=== PATIENT | female | born 1960 | race Caucasian/White ===

== ENCOUNTER → 2022-03-10 14:06 | Outpatient (BNVA) | payer BC, SELFPAY | PROVIDERS: Visit Provider Nurse Practitioner Family | DX: R09.81 Nasal congestion (principal); B34.9 Viral infection, unspecified; R12 Heartburn; I10 Essential (primary) hypertension | CPT/HCPCS: 87400; 87426 ==

== ENCOUNTER → 2022-06-14 11:50 | Outpatient (BNVA) | payer BC, SELFPAY | PROVIDERS: Visit Provider Nurse Practitioner Family | DX: M47.894 Other spondylosis, thoracic region (principal); M41.84 Other forms of scoliosis, thoracic region; M50.322 Other cervical disc degeneration at C5-C6 level | CPT/HCPCS: 72040; 72072 ==

== ENCOUNTER → 2023-08-30 10:45 | Outpatient (BNVA) | payer OTHER, SELFPAY | PROVIDERS: PCP Nurse Practitioner Family; Visit Provider Nurse Practitioner | DX: M19.011 Primary osteoarthritis, right shoulder; R29.898 Other symptoms and signs involving the musculoskeletal system | CPT/HCPCS: 73030 ==

== ENCOUNTER 2023-10-10 12:42 | Outpatient (CLI) | payer OTHER, SELFPAY ==
--- NOTE | 2023-10-10 13:00 | MR_ITS ---
WS: [id number] MRI RIGHT SHOULDER NONCONTRAST TECHNIQUE: Sagittal T2, coronal T1, T2 and proton density imaging. Axial gradient PDE imaging. CLINICAL INFORMATION: RIGHT shoulder pain and weakness COMPARISON: None. FINDINGS: Moderate degenerative arthritis AC joint with fluid and edema. Mild downsloping acromion. Impingement distal supraspinatus with subacromial spurring. Tendinopathy supraspinatus with partial intrasubstan ce tear. No tendon retraction. Chronic thinning of the distal supraspinatus. Tendinopathy infraspinat us. Normal teres minor. Normal subscapularis. Biceps tendon appears intact within the bicipital groove. M oderate to advanced degenerative arthritis glenohumeral articulation. Diffuse edema within the RIGHT humeral neck compatible with contusion. Suspected tiny hairline fractu re along the humeral neck although difficult to visualize due to motion artifact. This could be furth er evaluated with CT if indicated. MR/MR shoulder RT wo con* [id number] IMPRESSION: 1. Diffuse edema within the RIGHT humeral neck compatible with contusion. Susp ect tiny hairline fracture in this area but difficult to visualize due to motio n artifact. This can be followed up with CT if indicated. 2. Advanced degenerative arthritis AC joint with fluid and edema. 3. Tendinopathy supraspinatus and infraspinatus with chronic thinning. 4. Partial intrasubstance tear supraspinatus. No tendon retraction. 5. Biceps tendon appears intact within the bicipital groove.
== END 2023-10-10 12:43 | disposition home or self-care (01) ==
LOC: RAD 12:43
PROVIDERS: PCP Nurse Practitioner Family; Visit Provider Nurse Practitioner
DX: M19.011 Primary osteoarthritis, right shoulder (principal); R22.31 Localized swelling, mass and lump, right upper limb; M75.80 Other shoulder lesions, unspecified shoulder; M75.111 Incomplete rotator cuff tear or rupture of right shoulder, not specified as traumatic; M75.41 Impingement syndrome of right shoulder; M25.711 Osteophyte, right shoulder
CPT/HCPCS: 73221

== ENCOUNTER → 2023-10-19 15:03 | Outpatient (BNVA) | payer OTHER, SELFPAY | PROVIDERS: PCP Nurse Practitioner Family; Visit Provider Nurse Practitioner | DX: R29.898 Other symptoms and signs involving the musculoskeletal system (principal) | CPT/HCPCS: 36415; 80053; 81003; 81015; 85025 ==

== ENCOUNTER 2023-11-10 08:53 | Day surgery (SDC) | payer OTHER, SELFPAY ==
[2023-11-10] VITALS (10 sets, daily range): BP systolic 157–197; BP diastolic 80–96; PULSE 67–86; RESP 16–20; TEMP 36.2–37.2; O2SAT 97–100; BMI 28.6
[2023-11-10] MEDS: gabapentin 300 mg Capsule PO (09:40)
[2023-11-10] MEDS: acetaminophen 1,000 MG/100 ML PIGGYBACK 400 MG IV (09:40)
[2023-11-10] MEDS: CELEcoxib 200 mg Capsule 400 MG PO (09:40)
--- NOTE | 2023-11-10 09:45 | ANES.PREANE2 ---
Pre-Anesthetic Assessment Height/Weight: Height 1.63 m Weight 75.75 kg Temp Pulse Resp BP Pulse Ox O2 Del Method 98.9 F 67 18 197/80 99 Room Air 11/10/23 09:28 11/10/23 09:28 11/10/23 09:28 11/10/23 09:28 11/10/23 09:28 11/10/23 09:28 Operation Date: 11/10/23 10:40 Proposed Procedures p Open Distal Clavicle Resection(Right) - Mariaa Benedict MD s Acromioplasty(Right) - Mariaa Benedict MD s Debridement Upper Extremity/ shoulder(Right) - Mariaa Benedict MD Familial anesthetic complications: None Was Beta Chandana taken within 24 hours: N/A Was Clonidine taken within 24 hours: N/A Last intake: Intake Last Liquid Date 11/09/23 Last Liquid Time 20:30 Last Solid Date 11/09/23 Last Solid Time 20:30 Social No alcohol and No tobacco Exam alert, oriented x 3, clear to auscultation bilaterally and regular rate & rhythm Airway Mallampati: Class II Dentition: full CV/HEM Hypertension Anesthetic Plan ASA status: 2 Anesthesia: Regional (specify below) Risk of > 500 ml blood loss (7ml/kg in children): No Medications/Allergies Home Medications Medication Instructions Recorded Confirmed Last Taken Type celecoxib 100 mg capsule 100 mg PO BID #60 caps 08/31/23 11/08/23 11/09/23 Rx lisinopril 10 mg tablet 10 mg PO DAILY 11/01/23 11/08/23 11/09/23 History multivitamin 1 tab PO DAILY 11/01/23 11/08/23 11/09/23 History Allergies Allergy/AdvReac Type Severity Reaction Status Date / Time Penicillins Allergy rash Verified 11/01/23 09:11 [facility] Anesthesia Medical History Arthritis of right acromioclavicular joint Weakness of right shoulder Right shoulder pain Social History Smoking and tobacco/nicotine status: never used tobacco/nicotine Female Reproductive History Spontaneous abortions: No Data Anesthesia Cardiac Studies: No Data to Display
[2023-11-10] MEDS: midazolam 1 mg/mL INJ 2 mL 2 MG IVP (09:53)
--- NOTE | 2023-11-10 09:55 | W.PM.OPSUD ---
Surgery/Procedure H&P Update DATE OF PROCEDURE: November 10, 2023 DATE H&P PERFORMED: 10/19/23 H&P UPDATE INFORMATION: I have reviewed H&P completed within last 30 days, I have examined patient prior to procedure, No changes to prior documentation and H&P is in [facility] [place] [facility] EMR on date indicated PRIMARY INDICATION FOR PROCEDURE: MRO 10/10/23 IMPRESSION: 1. Diffuse edema within the RIGHT humeral neck compatible with contusion. Suspect tiny hairline fracture in this area but difficult to visualize due to motion artifact. This can be followed up with CT if indicated. 2. Advanced degenerative arthritis AC joint with fluid and edema. 3. Tendinopathy supraspinatus and infraspinatus with chronic thinning. 4. Partial intrasubstance tear supraspinatus. No tendon retraction. 5. Biceps tendon appears intact within the bicipital groove. PLANNED PROCEDURE: Operation Date: 11/10/23 10:40 Proposed Procedures p Open Distal Clavicle Resection(Right) - Mariaa Benedict MD s Acromioplasty(Right) - Mariaa Benedict MD s Debridement Upper Extremity/ shoulder(Right) - Mariaa Benedict MD Related Problem List Diagnoses (1) Arthritis of right acromioclavicular joint: (2) Impingement of right shoulder: (3) Tendinopathy of right shoulder:
[2023-11-10] MEDS: sodium chloride 0.9% 1,000 ML 30 ML IV (09:56)
--- NOTE | 2023-11-10 10:05 | PC.NURSE ---
0955- Nerve block done to Rt shoulder per Dr Valdez. Pt clair procedure well. Pulse rate remained in the lower 70s throughout procedure.
--- NOTE | 2023-11-10 10:08 | ANES.PROC ---
Anesthesia Procedures Procedure/Date: 11/10/23 Nerve Block ^: Nerve Block 1: Main Anesthesia: general anesthesia Time Out Performed: Yes Consent: requested by attending/covering physician, from patient, from other, risks and benefits reviewed and patient agrees to proceed Nerve block location: interscalene (R) Anesthesia monitors applied: pulse oximetry, EKG, BP cuff and oxygen Nerve block position: semi sitting Anesthetic Used: ropivicaine 0.5% (25) and with decadron (4 mg) Ultrasound used to: recognize landmarks, visualize and ID brachial plexus and visualize and ID interscalene groove Nerve Stimulator Used?: No Interscalene/Femoral BLK: 2 stimuplex 22 g needle used for position and inplane approach, visualize local anesthetic spread and no vascular puncture identified Injection: neg aspiration of heme Patient Tolerated Procedure: well Complications: none
[2023-11-10] MEDS: ceFAZolin 2,000 mg SDV 2000 MG IVP (10:12)
[2023-11-10] MEDS: vancomycin 1,000 MG SDV 1000 MG IRRIGATION (10:59)
--- NOTE | 2023-11-10 11:42 | P.OP_ITS ---
Operative Report Date of procedure: November 10, 2023 Pre-op diagnosis: Right shoulder impingement with acromioclavicular joint osteoarthritis and partial rotator cuff tear Post-op diagnosis: Right shoulder impingement with acromioclavicular joint osteoarthritis and partial rotator cuff tear Post-op findings: Abraded area over the supraspinatus tendon with significant impingement and severe osteoarthritis of the acromioclavicular joint Procedure done: Right shoulder acromioplasty with distal clavicle resection and bursectomy Specimens removed/disposition: Bone, disposed of Surgeon: Mariaa Benedict MD [employer] Claim Examiner: Saida Husain, nurse practitioner, who services were required for retraction, exposure, positioning, and closure. Anesthesia: General (Intubated, ASA 2) Estimated blood loss (mL): 10 IV fluids (mL): 300 Urine output (mL): 0 (No Venegas) Complications: None Findings: Significant impingement and subacromial with severe degenerative osteoarthritis of the acromioclavicular joint. The area over the bursal surface of the supraspinatus tendon. Condition: stable Disposition: PACU (Then return to same-day surgery for discharge to home) Brief History: This 62-year-old woman presented to the clinic complaining of right shoulder pain. She had had a fall which started the pain in the right shoulder. Subsequently, she developed significantly limited range of motion and ongoing pain. MRI was obtained preoperatively and demonstrated there was diffuse edema in the right humeral neck felt to possibly be a hairline fracture. She had advanced degenerative osteoarthritis of the acromioclavicular joint as well as tendinopathy and thinning of both the supraspinatus and infraspinatus tendons. After discussion in the office, the patient wished to proceed with operative intervention in the form of a distal clavicle resection with acromioplasty and debridement with possible rotator cuff repair. Risks and complications were discussed with her and consents were signed. Procedure: The patient was brought to the operating theater and underwent general intubated anesthesia, ASA 2. The patient was placed in a beachchair position and subsequently the right upper extremity was prepped and draped in the usual fashion utilizing DuraPrep. The arm was draped free. A surgical pause was performed prior to commencement of the surgical procedure. At the time of the surgical pause, we confirmed the site and side of surgery as well as administration of appropriate preoperative antibiotics Ancef 2 g. MRI was also reviewed at that time. Following the surgical pause, an incision was made at approximately the level of the acromioclavicular joint extending across the anterolateral corner of the acromion and distally as necessary. Care was taken to avoid injury to the axillary nerve by limiting the distal extent of the incision. Dissection continued through skin and soft tissues using a scalpel. Hemostasis was obtained using electrocautery. Soft tissues were elevated off the acromion. An acromioplasty was then accomplished using a combination of a saw and a power rasp. With this, we were able to remove compression caused by the acromion. The rotator cuff was then evaluated to look for tears. There was noted to be abrasion over the supraspinatus tendon, but there was no complete tear. Of note, there has been significant impingement from the acromion onto the rotator cuff. The shoulder was placed through further range of motion to assure there was no further evidence of rotator cuff tear. There was no evidence of further changes within the rotator cuff. Attention was therefore directed to the acromioclavicular joint. The acromioclavicular joint was exposed. A saw was then used to resect the distal clavicle without difficulty. The undersurface of the clavicle was palpated and was slightly further debrided. A power rasp was used to further smooth the area. When this was felt to be adequately resected, the wound was irrigated. Attention was then directed to closure. The wound was irrigated and closure was accomplished with 0 Vicryl in the capsular tissues overlying the acromioclavicular joint area as well as over the acromion and down into the deltoid muscle. 3-0 Monocryl was used to close the subcutaneous tissues followed by 4-0 Monocryl subcuticular closure. This was followed by Dermabond, Steri-Strips, and OpSite. The patient was placed in a sling and was returned to the recovery room in satisfactory condition. The patient will be discharged to home to follow-up with me in the office as scheduled. There were no complications and no specimens. Related Problem List Diagnoses (1) Impingement of right shoulder: (2) Tendinopathy of right shoulder: (3) Arthritis of right acromioclavicular joint:
[2023-11-10] MEDS: HYDROcodone-acetaminophen 5-325 mg Tablet 1 TAB PO (12:33)
--- NOTE | 2023-11-10 13:07 | ANE.PACU2 ---
Inpatient post-anesthesia follow up: Airway intact: Yes Vital signs: Temperature 97.2 F Pulse Rate 72 Respiratory Rate 18 Blood Pressure 174/80 Pulse Oximetry 98 Oxygen Delivery Me thod Room Air Oxygen Flow Rate 3 Fraction of Inspir ed Oxygen Hydration adequate: Yes Nausea and vomiting: No Pain level: 1 Mental status: Baseline
== END 2023-11-10 13:07 | disposition home or self-care (01) ==
PROVIDERS: PCP Nurse Practitioner Family; Visit Provider Specialist
PROC: (CPT 23120; principal; 2023-11-10 10:30)
PROC: (CPT 23130; 2023-11-10 10:30)
PROC: (CPT 23130; 2023-11-10 10:30)
DX: M25.811 Other specified joint disorders, right shoulder (principal); M19.011 Primary osteoarthritis, right shoulder; I10 Essential (primary) hypertension
CPT/HCPCS: 23130; 29824; J0131; J0690; J1100; J1200; J2250; J2405; J2704; J2710; J2795; J3010; J3370; J3490; J7030

== ENCOUNTER 2023-12-27 06:00 | Outpatient (RCR) | payer OTHER, SELFPAY | END 2024-01-05 23:59 | disposition home or self-care (01) | LOC: SPT 06:00 | PROVIDERS: Visit Provider Nurse Practitioner | DX: M67.911 Unspecified disorder of synovium and tendon, right shoulder (principal); M25.811 Other specified joint disorders, right shoulder; R29.898 Other symptoms and signs involving the musculoskeletal system | CPT/HCPCS: 97110; 97140; 97161; G0283 ==

== ENCOUNTER 2024-01-18 06:00 | Outpatient (RCR) | payer OTHER, SELFPAY | END 2024-02-04 23:59 | disposition home or self-care (01) | LOC: MPT 06:00 | PROVIDERS: Visit Provider Nurse Practitioner | DX: Z47.89 Encounter for other orthopedic aftercare (principal); M67.911 Unspecified disorder of synovium and tendon, right shoulder; M25.811 Other specified joint disorders, right shoulder; R29.898 Other symptoms and signs involving the musculoskeletal system | CPT/HCPCS: 97110; 97140; G0283 ==

== ENCOUNTER 2024-02-07 06:00 | Outpatient (RCR) | payer OTHER, SELFPAY | END 2024-03-06 23:59 | disposition home or self-care (01) | LOC: MPT 06:00 | PROVIDERS: PCP Nurse Practitioner Family; Visit Provider Nurse Practitioner | DX: Z47.89 Encounter for other orthopedic aftercare (principal) | CPT/HCPCS: 97110; 97140; G0283 ==

== ENCOUNTER 2024-03-07 06:00 | Outpatient (RCR) | payer OTHER, SELFPAY | END 2024-04-06 23:59 | disposition home or self-care (01) | LOC: MPT 06:00 | PROVIDERS: PCP Nurse Practitioner Family; Visit Provider Nurse Practitioner | DX: Z98.890 Other specified postprocedural states (principal); M67.911 Unspecified disorder of synovium and tendon, right shoulder | CPT/HCPCS: 97110; 97140 ==

== ENCOUNTER 2024-04-07 06:30 | Outpatient (RCR) | payer OTHER, SELFPAY | END 2024-04-12 07:02 | disposition home or self-care (01) | LOC: MPT 06:30 | PROVIDERS: PCP Nurse Practitioner Family; Visit Provider Nurse Practitioner | DX: Z98.890 Other specified postprocedural states (principal); M67.911 Unspecified disorder of synovium and tendon, right shoulder | CPT/HCPCS: 97110; 97140 ==